=== PATIENT | female | born 1950 | race Caucasian/White ===

== ENCOUNTER → 2016-09-09 | Outpatient (CLI) | payer MEDICARE ==
[2013-08-24 08:45] VITALS: BP 127/90
[~2016-09-09] MED LIST: ASPI-482 PO; CLON0.5T20 PO; DOXY100C2 PO; FLUT16SP2 NS; KRIL1CAP4 PO; LISI1TAB3 PO; MECL-51 PO; RANI150T2 PO; SERT100T8 PO; SIMV40TA3 PO
--- NOTE | 2016-09-09 13:25 | KCIC ---
EXAM: Right calcaneus, 3 views. HISTORY: Heel pain. COMPARISON: None. FINDINGS: 3 views of the right calcaneus are obtained. There is a small plantar spur. There is no fracture, dislocation or subluxation. There is no radiographic evidence of osteomyelitis. IMPRESSION: Small plantar spur. Electronically signed by: Jo Harrington MD (09/09/2016 1:22 PM)
== END | disposition home or self-care (01) ==
LOC: KCIC 12:13
PROVIDERS: ATTEND Family Medicine
DX: M77.31 Calcaneal spur, right foot (principal)
CPT/HCPCS: 73650

== ENCOUNTER → 2019-03-15 | Outpatient (CLI) | payer OTHER ==
[2013-08-24 08:45] VITALS: BP 127/90
[~2019-03-15] MED LIST changes: +LISI1TAB23 PO; -LISI1TAB3 PO; +SIMV40TA18 PO; -SIMV40TA3 PO
--- NOTE | 2019-03-16 10:50 | KCIC ---
Three-view bilateral hand dated 03/15/2019. No comparison available. CLINICAL INDICATION: Polyarthralgia. Pain. FINDINGS: 3 views of left hand show normal bony alignment. No displaced fracture. No erosive changes or periostitis. There is mild to moderate degenerative change of the first carpometacarpal joint. Mild degenerative change of the interphalangeal joints throughout. 3 views the right hand show normal bony alignment. No displaced fracture. No erosive changes or periostitis. There is mild to moderate degenerative change of the first carpometacarpal joint with mild degenerative changes of the interphalangeal joints throughout. IMPRESSION: 1. No acute radiographic abnormality. 2. Mild findings of osteoarthrosis. No definite evidence for inflammatory arthropathy. Electronically signed by: Agustín Jimenez MD (03/16/2019 10:47 AM) [facility]
== END | disposition home or self-care (01) ==
LOC: KCIC 11:17
PROVIDERS: ATTEND Internal Medicine Rheumatology
DX: M18.0 Bilateral primary osteoarthritis of first carpometacarpal joints (principal); M25.542 Pain in joints of left hand; M25.541 Pain in joints of right hand
CPT/HCPCS: 73130

== ENCOUNTER → 2019-12-22 | Outpatient (CLI) | payer OTHER ==
[2013-08-24 08:45] VITALS: BP 127/90
--- NOTE | 2019-12-22 14:06 | RAD ---
INDICATION: Reason: Bilateral Leg Swelling; Elevated D-Dimer / Spl. Instructions: / History: COMPARISON: None. TECHNIQUE: Grayscale, color and doppler ultrasound images were obtained of the bilateral lower extremity venous vasculature. RIGHT: No thrombus identified in the common femoral vein, femoral vein, popliteal vein or visualized calf veins. LEFT: No thrombus identified in the common femoral vein, femoral vein, popliteal vein or visualized calf veins. IMPRESSION: * No thrombus identified in deep venous system of bilateral lower extremities. Electronically signed by: Seferino Ugalde MD (12/22/2019 2:02 PM) [id number]
== END | disposition home or self-care (01) ==
LOC: US 12:39
PROVIDERS: ATTEND Internal Medicine
DX: R22.43 Localized swelling, mass and lump, lower limb, bilateral (principal); R79.1 Abnormal coagulation profile
CPT/HCPCS: 93970

== ENCOUNTER 2020-05-02 18:51 | Emergency (ER) | payer OTHER ==
[~2020-05-02] VITALS: Ht 147.3 cm; Wt 106.8 kg
[2020-05-02 19:38] VITALS: BP 137/72
--- NOTE | 2020-05-02 19:51 | PHYS DOC ---
Past Medical History Past Medical History: Anxiety Additional Past Medical Histor: osteoarthritis,panic attacks,DDD,arthritis Past Surgical History: Cholecystectomy, Hysterectomy, Tonsillectomy, Tubal ligation Drug Use: None General Adult EDM: Chief Complaint: MECHANICAL FALL HPI: HPI: 70-year-old female past medical history of anxiety, fibromyalgia, obesity, osteoarthritis and chronic pain (on oxycodone 5 mg qid), presents the ED with complaints of bilateral ankle pain after she rolled her ankle last . Patient reports her right foot stepped on a dog toy, such that she rolled her right ankle, lifted her weight to her left ankle and states her left ankle rolled such that she fell to the ground but did not hit her head or lose consciousness. Was not medically seen at that time. Is not on any blood thinners. States she cannot take NSAIDs because she is taking duloxetine. Has been unable to get in see her primary care physician and came to the ED because pain has not resolved. Ambulates with a cane and has been able to bear weight. Reports pain is localized to both ankle joints, no focal localized tenderness. Took 2 tablets of Tylenol prior to ED arrival. Review of Systems: Review of Systems: Constitutional: Denies fever or chills. [] Eyes: Denies change in visual acuity. [] HENT: Denies nasal congestion or sore throat. [] Respiratory: Denies cough or shortness of breath. [] Cardiovascular: Denies chest pain or edema. [] GI: Denies abdominal pain, nausea, vomiting, bloody stools or diarrhea. [] : Denies dysuria. [] Musculoskeletal: Denies back pain or joint pain. [] Integument: Denies rash. [] Neurologic: Denies headache, focal weakness or sensory changes. [] Endocrine: Denies polyuria or polydipsia. [] Lymphatic: Denies swollen glands. [] Psychiatric: Denies depression or anxiety. [] Heart Score: Risk Factors: Risk Factors: DM, Current or recent (<one month) smoker, HTN, HLP, family history of CAD, obesity. Risk Scores: Score 0 - 3: 2.5% MACE over next 6 weeks - Discharge Home Score 4 - 6: 20.3% MACE over next 6 weeks - Admit for Clinical Observation Score 7 - 10: 72.7% MACE over next 6 weeks - Early Invasive Strategies Allergies: Allergies: Allergies Coded Allergies Type Severity Reaction Last Updated Verified Iodinated Contrast Media Allergy Intermediate Rash 08/23/13 Yes codeine Allergy Mild nauseated 08/23/13 Yes Physical Exam: PE: Constitutional: Well developed, well nourished, no acute distress, non-toxic appearance. HENT: Normocephalic, atraumatic, Eyes: EOMI, conjunctiva normal, no discharge. Neck: Normal range of motion, supple, Cardiovascular: S1/2 present, regular rhythm Lungs & Thorax: Speaking in full sentences, bilateral equal chest rise, no tachypnea or increased work of breathing Abdomen: soft, no tenderness, Skin: Warm, dry, no erythema, no rash. [] Back: No tenderness, no CVA tenderness. [] Extremities: No tenderness, no cyanosis, no edema Neurologic: Alert and oriented X 3, normal motor function, normal sensory function, no focal deficits noted. [] Psychologic: Affect normal, judgement normal, mood normal. [] EKG: EKG: [] Radiology/Procedures: Radiology/Procedures: IMAGING REPORT Signed PATIENT: JACK MEZA LACCOUNT: [id number] : 1950 LOCATION: ER AGE: 69 SEX: F EXAM STATUS: REG ER ORD. PHYSICIAN: JERALD AGOSTO DO REASON: bl ankle pain PROCEDURE: FOOT BILAT 2V Exam: Bilateral feet 2 views. Bilateral ankles 3 views INDICATION: Bilateral ankle pain TECHNIQUE: Frontal and lateral views of the right foot, left foot, right ankle and left ankle Comparisons: None FINDINGS: Right foot: Bone mineralization is normal. No acute or healed fractures. Soft tissues are unremarkable. Joint spaces are well-maintained. Left foot: Bone mineralization is normal. No acute or healed fractures. Soft tissues are unremarkable. Joint spaces are well-maintained. Right ankle: Bone mineralization is normal. No acute or healed fractures. Soft tissue swelling surrounding the ankle. Joint spaces are well-maintained. Left ankle: Bone mineralization is normal. No acute or healed fractures. Soft tissue swelling surrounding the ankle. Joint spaces are well-maintained. IMPRESSION: 1. Soft tissue swelling surrounding the ankle without underlying osseous abnormality identified. 2. No acute osseous abnormality identified at the feet. Electronically signed by: Moise Ibrahim MD (05/02/2020 8:39 PM) [facility] DICTATED and SIGNED BY: MOISE IBRAHIM MD DATE: 05/02/[id number] 0 Course & Med Decision Making: Course & Med Decision Making Pertinent Labs and Imaging studies reviewed. (See chart for details) Concern for bilateral ankle sprains, worse on left ankle than right. No visible sign of trauma and patient is able to bear weight. Will discharge home with strict ED return precautions were given for severe pain out of proportion to exam, neurologic deficits or repeat trauma. Encouraged urgent outpatient follow- up with PMD and Ortho if pain should persist, may need further imaging. Life-th reatening processes were considered but are low suspicion at this time, given history, physical exam and ED workup. Pt was educated on all prescription medications and adverse effects. All patient's questions were answered and pt was stable at time of discharge. Life/limb-threatening differential includes but is not limited to, avascular necrosis, septic arthritis, malignancy, fracture/ligamentous injury/overuse, decompression sickness, seronegative spondyloarthropathies, trauma including dislocation/fracture, Lyme disease, lupus, arthritis differentials, gout/pseudogout or decompression sickness. I spoken with the patient and her caregivers. I explained the patient's condition, diagnoses and treatment plan based on the information available to me at this time. I have answered the patient and her caregiver's questions and addressed any concerns. The patient and her caregivers have a good understanding of patient's diagnosis, condition and treatment plan as can be expected at this point. Vital signs have been stable. Patient's condition is stable and appropriate for discharge from the emergency department. Patient will pursue further outpatient evaluation with primary care physician or other designated or consulting physician as outlined in the discharge instructions. The patient and/or caregivers are agreeable to this plan of care and follow-up instructions have been explained in detail. The patient and/or caregivers have received these instructions in written form and have expressed an understanding of the discharge instructions. The patient and/or caregivers are aware that any significant change of condition or worsening of symptoms should prompt immediate return to this or the closest emergency department or call to 911. Vangie Disclaimer: Vangie Disclaimer: This electronic medical record was generated, in whole or in part, using a voice recognition dictation system. Departure Departure Impression: Primary Impression: Bilateral ankle pain Additional Impressions: Left ankle sprain Right ankle sprain Disposition: 01 DC HOME SELF CARE/HOMELESS Condition: STABLE Referrals: LYLY RICO MD (PCP) Patient Instructions: Ankle Sprain, RICE - Routine Care for Injuries Additional Instructions: FOLLOW UP WITH ORTHOPEDICS: Orthopaedic Sports Medicine Orthopaedic [facility] Address: [address] [facility], [address] [address] EMERGENCY DEPARTMENT GENERAL DISCHARGE INSTRUCTIONS Thank you for coming to [facility] Emergency Department (ED) today and trusting us with you care. We trust that you had a positive experience in our Emergency Department. If you wish to speak to the department management, you may call the Director at [phone]. YOUR FOLLOW UP INSTRUCTIONS ARE FOLLOWS: 1. Do you have a private Doctor? If you do not have a private doctor, please ask for a resource list of physicians or clinics that may be able to assist you with follow up care. 2. The Emergency Physicain has interpreted your x-rays. The X-Ray specialist will also review them. If there is a change in the findings, you will be notified in 48 hours when at all possible. 3. A lab test or culture has been done, your results will be reviewed and you will be notified if you need a change in treatment. ADDITIONAL INSTRUCTIONS AND INFORMATION: 1. Your care today has been supervised by a physician who is specially trained in emergency care. Many problems require more than one evaluation for a complete diagnosis and treatment. We recommend that you schedule your follow up appointment as recommended to ensure complete treatment of you illness or injury. If you are unable to obtain follow up care and continue to have a problem, or if your condition worsens, we recommend that you return to the ED. 2. We are not able to safely determine your condition over the phone nor are we able to give sound medical advice over the phone. For these safety reasons, if you call for medical advice we will ask you to come to the ED for further evaluation. 3. If you have any questions regarding these discharge instructions please call the ED at [phone]. SAFETY INFORMATION: In the interest of safety, wellness, and injury prevention; we encourage you to wear your sealbelt, if you smoke; quite smoking, and we encourage family to use a protective helmet for bicycling and other sporting events that present an increased risk for head injury. IF YOUR SYMPTOMS WORSEN OR NEW SYMPTOMS DEVELOP, OR YOU HAVE CONCERNS ABOUT YOUR CONDITION; OR IF YOUR CONDITION WORSENS WHILE YOU ARE WAITING FOR YOUR FOLLOW UP APPOINTMENT; EITHER CONTACT YOUR PRIMARY CARE DOCTOR, THE PHYSICIAN WHOSE NAME AND NUMBER YOU WERE GIVEN, OR RETURN TO THE ED IMMEDIATELY. [facility] CENTERJERALD DO May 02, 2020 19:51
[2020-05-02] MEDS ORDERED: traMADol 50 MG TABLET PO ONE (20:00)
--- NOTE | 2020-05-02 20:41 | RAD ---
Exam: Bilateral feet 2 views. Bilateral ankles 3 views INDICATION: Bilateral ankle pain TECHNIQUE: Frontal and lateral views of the right foot, left foot, right ankle and left ankle Comparisons: None FINDINGS: Right foot: Bone mineralization is normal. No acute or healed fractures. Soft tissues are unremarkable. Joint spa kvng are well-maintained. Left foot: Bone mineralization is normal. No acute or healed fractures. Soft tissues are unremarkable. Joint spa kvng are well-maintained. Right ankle: Bone mineralization is normal. No acute or healed fractures. Soft tissue swelling surrounding the ank le. Joint spaces are well-maintained. Left ankle: Bone mineralization is normal. No acute or healed fractures. Soft tissue swelling surrounding the ank le. Joint spaces are well-maintained. IMPRESSION: 1. Soft tissue swelling surrounding the ankle without underlying osseous abnormality identified. 2. No acute osseous abnormality identified at the feet. Electronically signed by: Moise Ingram MD (05/02/2020 8:39 PM) [place]
== END 2020-05-02 23:08 | disposition home or self-care (01) ==
LOC: ER 18:51
DX: S93.401A Sprain of unspecified ligament of right ankle, initial encounter (principal); S93.402A Sprain of unspecified ligament of left ankle, initial encounter; G89.29 Other chronic pain; Z90.49 Acquired absence of other specified parts of digestive tract; Z90.710 Acquired absence of both cervix and uterus; Z98.51 Tubal ligation status; Z88.5 Allergy status to narcotic agent; Z91.041 Radiographic dye allergy status; W18.31XA Fall on same level due to stepping on an object, initial encounter; Y93.89 Activity, other specified; Y92.89 Other specified places as the place of occurrence of the external cause; Y99.8 Other external cause status
CPT/HCPCS: 29515; 73600; 73620; 99284; L4350

== ENCOUNTER → 2020-12-19 | Outpatient (CLI) | payer OTHER ==
[~2020-12-19] MED LIST changes: -DOXY100C2 PO; +DOXY100C3 PO; +SERT-268 PO; -SERT100T8 PO
--- NOTE | 2020-12-19 13:29 | RAD ---
CLINICAL HISTORY: Reason: LT LEG SWELLING / Spl. Instructions: / History: COMPARISON: None available. TECHNIQUE: Ultrasound evaluation of the left lower extremity was performed with platt scale, spectral and color d oppler evaluation. FINDINGS: The left common femoral vein, and femoral vein, including the saphenous-femoral junction are normal i n appearance. Color and spectral Doppler evaluation demonstrates normal spontaneous flow, augmentatio n and phasicity. The left popliteal vein and visualized calf veins also demonstrate normal compressibility and flow. IMPRESSION: No evidence of deep venous thrombosis in the left lower extremity. Electronically signed by: Ria Sauceda MD (12/19/2020 1:27 PM) [id number]
--- NOTE | 2020-12-19 19:01 | RAD ---
EXAMINATION: US ABDOMEN COMPLETE 12/19/2020 12:58 PM INDICATION: Elevated ALP TECHNIQUE: Aguilar scale and color Doppler ultrasound images of the abdomen were obtained. COMPARISON: None. FINDINGS: Liver: The liver is normal in] size measuring 13 cm in length. Mildly increased hepatic echogenicity. No focal liver lesion. Gallbladder: The gallbladder is surgically absent. Bile ducts: The common bile duct is normal measuring 6 mm. No intrahepatic biliary duct dilatation. Kidneys: The right kidney measures 9.6 x 4.5 x 5.2 cm. The left kidney measures 12.0 x 4.4 x 5.8 cm. Normal cortical thickness and echogenicity bilaterally. No hydronephrosis. There is a 1.6 cm simpl e cyst in the right kidney. Spleen: Spleen is normal measuring 11.4 cm. Other: Abdominal aorta and inferior vena cava are normal where visualized. The pancreas is normal wh ere visualized. IMPRESSION: 1. Mild hepatic steatosis. 2. Post cholecystectomy. 3 1.6 cm simple right renal cyst. Electronically signed by: Ria Sauceda MD (12/19/2020 6:59 PM) [id number]
== END ==
LOC: US 12:33
PROVIDERS: ATTEND Internal Medicine
DX: N28.1 Cyst of kidney, acquired (principal); K76.0 Fatty (change of) liver, not elsewhere classified; M79.89 Other specified soft tissue disorders; R74.8 Abnormal levels of other serum enzymes; Z90.49 Acquired absence of other specified parts of digestive tract
CPT/HCPCS: 76700; 93971